=== PATIENT | female | born 1990 | race Caucasian/White ===

== ENCOUNTER → 2018-08-27 14:26 | Outpatient (CLI) | payer MEDICAID, SELFPAY ==
[2018-08-29 18:41] LABS: HPV Reflexed? NOT INDICATED
--- OUTSIDE RECORDS SUMMARY | 2018-11-29 06:52 | XMS RPT_ITS ---
:1990 Author Organization [facility] Care Team Providers Name Role Phone SADA PHILLIP (SLOT FLOOR SUPERVISOR) Attending Unavailable SADA PHILLIP (SLOT FLOOR SUPERVISOR) Referring Unavailable SADA PHILLIP (SLOT FLOOR SUPERVISOR) Referring Unavailable NO, DOCTOR ON Consulting Unavailable NO, DOCTOR ON Referring Unavailable VOLLIRAM DO Primary Care Unavailable VOLLIRAM DO Attending Unavailable VOLIRAM Vazquez DO Admitting Unavailable Suresh Gillis Attending Unavailable Primay Care Physicia, No Primary Care Unavailable PROBLEMS PROBLEMS DATE TYPE CONDITION / CODE ATTENDING STATUS SOURCE 08/27/2018 Unknown Z12.4 - Encounter Suresh Gillis Active [place] for screening for [facility] neoplasm of Repository cervix / Z12.4(ICD-10) 07/16/2018 Active Periumbilic NA Active [facility] swelling, mass or [facility] [place] lump / Repository R19.05(ICD-10) 06/29/2018 Active Generalized NA Active [facility] abdominal pain / [place] R10.84(ICD-10) Repository 06/29/2018 Active Abdominal NA Active [facility] distension [facility] [place] (gaseous) / Repository R14.0(ICD-10) PROCEDURES PROCEDURES No Procedure Records FoundRESULTS RESULTS PAP I-G W/RFX HRHPV Collected: 08/27/2018 Status: F Source: [place] 11:30 AM [facility] REPOSITORY Order Comment: CYTOLOGY INFORMATION: - CLINICAL INFORMATION: - DATE LMP/MENOPAUSE: 08/14/18 LMP - COLLECTION VIAL: Thin Prep Vial - RN ORTHOPAEDICS SOURCE: CERVICAL/ENDOCERVICAL - COLLECTION TECHNIQUE: BRUSH/SPATULA Specimen Comment: [id number] Specimen Comment: Source.............Cervix;Endocervix Specimen Comment: LMP / Prev Treat...CLA=[id number] Specimen Comment: No. of containers..01 ThinPrep Vial TYPE CODE TESTS RESULT OUT OF RANGE REFERENCE UNITS LAB L7400.0800 . Normal DIAGN Comment Result Comment: NEGATIVE FOR INTRAEPITHELIAL LESION AND MALIGNANCY. LAB L7400.0900 . Normal ADEQ Comment Result Comment: Satisfactory for evaluation. Endocervical and/or squamous metaplastic cells (endocervical component) are present. LAB L7400.1400 . Normal PERFORM Comment Result Comment: Melva Kang Transportation Planning Engineer (ASCP) LAB L7400.2575 . Normal TEST METHOD Comment Result Comment: This liquid based ThinPrep(R) pap test was screened with the use of an image guided system. LAB L7400.2600 . Normal . COMM LAB L7400.2700 . Normal PAPSMR Comment Result Comment: The Pap smear is a screening test designed to aid in the detection of premalignant and malignant conditions of the uterine cervix. It is not a diagnostic procedure and should not be used as the sole means of detecting cervical cancer. Both false-positive and false-negative reports do occur. LAB L7400.2800 . Normal HPV RFLX Comment Result Comment: The HPV DNA reflex criteria were not met with this specimen result therefore, no HPV testing was performed. Performed at: [address] [id number] Clinical Support Manager: Hamida Case MD, Phone: [phone] Performed By: #### L7400.0350 #### [facility] (refer to report for specific site) refer to report for address and phone number PROGRESS Observed: 07/16/2018 Status: COMPLETED Source: [place] 12:13 PM [facility] [place] REPOSITORY O ID: [id number] Author: Maday Guillen Service: (none) Author Type: Garage Supervisor Type: Progress Notes Filed: 07/16/2018 12:14 PM Note Text: Radiology Service Progress Note PATIENT NAME: Elizabeth Wilkins DATE OF SERVICE: July 16, 2018 TIME: 12:13 PM PATIENT IDENTITY VERIFICATION COMPLETED USING TWO (2) METHODS: Patient confirmed name verbally and Date of . PATIENT GENDER DATA: Female. status: : No status: N/A PATIENT RELEVANT IMPLANT DATA REVIEWED: Not Applicable RADIOLOGY DEPARTMENT: Ultrasound PERIPHERAL IV DATA: Not applicable SIGNED BY: MADAY GUILLEN RDMS RVT July 16, 2018 12:13 PM US ABDOMEN COMPLETE Observed: 07/16/2018 Status: F Source: [place] 12:12 PM [facility] [place] REPOSITORY * * *Final Report* * * DATE OF EXAM: Jul 16 2018 12:12PM U 1040 - US ABDOMEN COMPLETE / PROCEDURE REASON: multiple diagnoses * * * * Physician Interpretation * * * * ULTRASOUND ABDOMEN COMPLETE: HISTORY: 27 years old Clinical information: Periumbilical mass Generalized abdominal pain TECHNIQUE: Multiple images were obtained in the sagittal axial plane.Images stored and permanent archive. Comparison: None RESULT: Findings: Liver: No focal masses.. Echotexture normal . Biliary tree: Common duct normal size. No intrahepatic bile duct dilatation . Pancreas: No focal masses.. Gallbladder: Unremarkable Spleen: Unremarkable . Limited evaluation due to overlying bowel gas. Aorta: Normal in size . Inferior vena cava: Unremarkable Kidneys: No focal masses. No hydronephrosis. . Area of pain in where patient felt a palpable area superior to the umbilicus also scanned. No abnormality was seen in this area Impression: Negative exam Cinema Or Theatre Manager: YFN Transcribe Date/Time: Jul 17 2018 12:12P Dictated by : THAO GUZMAN DO This examination was interpreted and the report reviewed and electronically signed by: THAO GUZMAN DO on Jul 17 2018 12:13PM EST [id number] CBC AND DIFFERENTIAL Collected: 06/29/2018 Status: F Source: [place] 1:23 PM [facility] REPOSITORY TYPE CODE TESTS RESULT OUT OF REFERENCE UNITS RANGE LAB WBC 3.70-11.00 k/uL WBC 6.70 LAB RBC 3.90-5.20 m/uL RBC 4.19 LAB HGB 11.5-15.5 g/dL Hemoglobin 13.3 LAB HCT 36.0-46.0 % Hematocrit 42.6 LAB MCV 80.0-100.0 fL MCV High 101.7 LAB MCH 26.0-34.0 pG MCH 31.7 LAB MCHC 30.5-36.0 g/dL MCHC 31.2 LAB RDWCV 11.5-15.0 % RDW-CV 12.3 LAB PLTCT 150-400 k/uL Platelet Count 244 LAB MPV 9.0-12.7 fL MPV 10.6 LAB ANEUT % Neut% 49.5 LAB AANEUT 1.45-7.50 k/uL Abs Neut 3.30 LAB ALYMP % Lymph% 40.4 LAB AALYMP 1.00-4.00 k/uL Abs Lymph 2.71 LAB AMONO % [place]% 6.7 LAB AAMONO <0.87 k/uL Abs [place] 0.45 LAB AEOS % Eosin% 2.2 LAB AAEOS <0.46 k/uL Abs Eosin 0.15 LAB ABASO % Baso% 1.2 LAB AABASO <0.11 k/uL Abs Baso 0.08 LAB AUNRBC 0 /100 WBC NRBCs 0.0 LAB ABNRBC <0.01 k/uL Absolute nRBC <0.01 LAB DTYP DTYPE Auto Diff Performed By: #### CBCDIF, CMP, HPYLRI #### [facility] [address] [place] [address] COMP METABOLIC PANEL Collected: 06/29/2018 Status: F Source: [place] 1:23 PM [facility] [place] REPOSITORY TYPE CODE TESTS RESULT OUT OF REFERENCE UNITS RANGE LAB TP 6.3-8.0 g/dL Protein, Total 7.0 LAB ALB 3.9-4.9 g/dL Albumin 4.6 LAB CA 8.5-10.2 mg/dL Calcium, Total 9.7 LAB TBIL 0.2-1.3 mg/dL Bilirubin, Total 0.4 LAB ALKP 34-123 U/L Alkaline Phosphatase 46 LAB AST 13-35 U/L AST 19 LAB GLU 74-99 mg/dL Glucose 82 Result Comment: The [place] Diabetes Association (ADA) provides guidance for cutoff values for fasting glucose and random glucose. The ADA defines fasting as no caloric intake for at least 8 hours. Fas ting plasma glucose results between 100 to 125 mg/dL indicate increased risk for diabetes (prediabetes). Fasting plasma glucose results greater than or equal to 126 mg/dL meet the criteria for diagnosis of diabetes. In the absence of unequivocal hyperglycemia, results should be confirmed by repeat testing. In a patient with classic symptoms of hyperglycemia or hyperglycemic crisis, random plasma glucose results greater than or equal to 200 mg/dL meet the criteria for diagnosis of diabetes. Reference: Standards of Medical Care in Diabetes 2016, [place] Diabetes Association. Diabetes Care. 2016.39(Suppl 1). LAB BUN 7-21 mg/dL BUN 11 LAB CRET 0.58-0.96 mg/dL Creatinine High 0.97 LAB NA 136-144 mmol/L Sodium 140 LAB K 3.7-5.1 mmol/L Potassium 4.3 LAB CL 97-105 mmol/L Chloride 102 LAB CO2 22-30 mmol/L CO2 25 LAB AGAP 9-18 mmol/L Anion Gap 13 LAB ALT 7-38 U/L ALT 11 LAB GFRAA eGFR- Amer. >60 LAB GFRNAA . eGFR-All Other Races >60 Result Comment: eGFR (Estimated GFR) Units of measure: mL/min/1.73 meters squared eGFR is derived from the reexpressed MDRD Study equation using the following parameters: serum creatinine, age, gender and race. The creatinine assay has been calibrated to be traceable to IDMS. An eGFR <60 mL/min/1.73m2 for >3 months is consistent with chronic kidney disease. Refer to KDOQI guidelines for clinical interpretation. In patients with unstable renal function, e.g. those with acute kidney injury, the eGFR may not accurately reflect actual GFR. Performed By: #### CBCDIF, CMP, HPYLRI #### [facility] [address] [place] [id number] HELICO PYLORI AB Collected: 06/29/2018 Status: F Source: [place] 1:23 PM [facility] REPOSITORY TYPE CODE TESTS RESULT OUT OF REFERENCE UNITS RANGE LAB HPYLRL Negative H. pylori Negative IgG, Qual Result Comment: H. pylori IgG antibodies were not detected in the sample. Negative results by this test do not preclude recent primary infection. LAB HPYLR U/mL H pylori Ab, IgG <0.4 Result Comment: U/mL are interpreted as follows: Negative specimens <0.9 Indeterminate specimens >=0.9 to <1.1 Positive specimens >=1.1 Results were obtained with the IMMULITE 2000 H.pylori IgG EIA. Results obtained from other manufacturers' assay methods may not be used interchangeably. Performed By: #### CBCDIF, CMP, HPYLRI #### [facility] [address] [place], [place] [address] PROGRESS Observed: 06/29/2018 Status: COMPLETED Source: [place] 12:49 PM [facility] REPOSITORY HNO ID: [id number] Author: Sada (Dena) Jack Service: (none) Author Type: Nurse Practitioner Type: Progress Notes Filed: 06/29/2018 1:16 PM Note Text: 06/29/2018 Patient presents with: Mass SUBJECTIVE: This is a 27 year old that is here today for abdominal cramping, bloating, and umbilical mass that she noticed 2 months ago and has become painful with exertion with things like intercourse. She does not have any increased pain with BMs. She states that she has 2 BMS a week that are soft and formed, but she feels that she should be having more. She had been on fiber in the past, but has not been taking it. She admits to not drinking much water and not eating vegetables. She states that she looked up a special diet for her blood type that told her to avoid meats, but that has not helped. She denies decreased appetites, NVD, blood in stools, Urinary concerns. PAST MEDICAL HISTORY Diagnosis Date - NEGATIVE MEDICAL HISTORY ALLERGIES Patient has no known allergies. MEDICATIONS Current Outpatient Prescriptions: Norgestimate-Ethinyl Estradiol (TRI-SPRINTEC) 0.18/0.215/0.25 mg-35 mcg (28) tab Take by mouth. VIT CALC,IRON,FOLIC ( #2 ORAL) Take by mouth. acetaminophen (TYLENOL) 325 mg tablet Take 650 mg by mouth every 6 hours as needed for Pain. No current facility-administered medications for this visit. Medications and allergies reviewed by this provider. SOCIAL HISTORY Social History Marital status: Single Spouse name: Years of education: Number of children: Social History Main Topics Smoking status: Current Every Day Smoker Packs/day: 0.40 Years: 0.00 Smokeless tobacco: Never Used Alcohol use: Yes Comment: rare Drug use: Yes Comment: marijuana 2x per yaneli REVIEW OF SYSTEMS see HPI OBJECTIVE: BP 106/70 Pulse 99 Resp 12 Wt 52.2 kg (115 lb) SpO2 99% . Vital signs reviewed by this provider. PHYSICAL EXAMINATION: General appearance: Well appearing, alert, in no acute distress, well-hydrated, well nourished. Skin: Skin color, texture, turgor normal, no suspicious rashes or lesions, acne Lungs: Lungs clear to auscultation. No wheezing, rhonchi, rales Heart: RRR without murmur, gallop, or rubs. No ectopy Abdomen: Abdomen soft, non-tender. Bowel sounds normal. No masses, organomegaly, slightly harder spot with palpation directly to the umbilicus- does not feel like a well defined mass, unclear if it may be umbilicus itself. Extremities: No deformities, edema, skin discoloration, clubbing or cyanosis. Good capillary refill. , Pulses: 2+ ASSESSMENT/PLAN: 1. Periumbilical mass - ICD9: 789.35, ICD10: R19.05 (primary diagnosis) - unclear etiology. Will order US to evaluate further. - instructed to increase fiber in diet and fluids - ok to add miralax - US ABDOMEN COMPLETE 2. Generalized abdominal pain - ICD9: 789.07, ICD10: R10.84 Differential Diagnosis includes Constipation - Increase fiber in diet - Treatment for constipation discussed - US ABDOMEN COMPLETE - COMP METABOLIC PANEL - CBC + DIFF - H PYLORI IGG AB 3. Bloating - ICD9: 787.3, ICD10: R14.0 - see above - H PYLORI IGG AB Needs to see PCP for physical, has not been seen since 2014 Sada Phillip APRN.DENA CNOV Observed: 06/29/2018 Status: COMPLETED Source: [place] 12:40 PM [facility] REPOSITORY Office Visit (FAMPWS) ELIZABETH WILKINS ([id number]) 1990 F Date Time Provider Department 06/29/18 12:40 PM SADA PHILLIP (DENA) FAMPWS During your visit today, we recorded the following information about you: Pulse Respiration Blood pressure Weight 99/minute 12/minute 106/70 52.2 kg Sada PetitMABEL ibarra.SLOT FLOOR SUPERVISOR 06/29/2018 1:16 PM Signed 06/29/2018 Patient presents with: Mass SUBJECTIVE: This is a 27 year old that is here today for abdominal cramping, bloating, and umbilical mass that she noticed 2 months ago and has become painful with exertion with things like intercourse. She does not have any increased pain with BMs. She states that she has 2 BMS a week that are soft and formed, but she feels that she should be having more. She had been on fiber in the past, but has not been taking it. She admits to not drinking much water and not eating vegetables. She states that she looked up a special diet for her blood type that told her to avoid meats, but that has not helped. She denies decreased appetites, NVD, blood in stools, Urinary concerns. PAST MEDICAL HISTORY Diagnosis Date - NEGATIVE MEDICAL HISTORY ALLERGIES Patient has no known allergies. MEDICATIONS Current Outpatient Prescriptions: Norgestimate-Ethinyl Estradiol (TRI-SPRINTEC) 0.18/0.215/0.25 mg-35 mcg (28) tab Take by mouth. VIT CALC,IRON,FOLIC ( #2 ORAL) Take by mouth. acetaminophen (TYLENOL) 325 mg tablet Take 650 mg by mouth every 6 hours as needed for Pain. No current facility-administered medications for this visit. Medications and allergies reviewed by this provider. SOCIAL HISTORY Social History Marital status: Single Spouse name: Years of education: Number of children: Social History Main Topics Smoking status: Current Every Day Smoker Packs/day: 0.40 Years: 0.00 Smokeless tobacco: Never Used Alcohol use: Yes Comment: rare Drug use: Yes Comment: marijuana 2x per yaneli REVIEW OF SYSTEMS see HPI OBJECTIVE: BP 106/70 Pulse 99 Resp 12 Wt 52.2 kg (115 lb) SpO2 99% . Vital signs reviewed by this provider. PHYSICAL EXAMINATION: General appearance: Well appearing, alert, in no acute distress, well-hydrated, well nourished. Skin: Skin color, texture, turgor normal, no suspicious rashes or lesions, acne Lungs: Lungs clear to auscultation. No wheezing, rhonchi, rales Heart: RRR without murmur, gallop, or rubs. No ectopy Abdomen: Abdomen soft, non-tender. Bowel sounds normal. No masses, organomegaly, slightly harder spot with palpation directly to the umbilicus- does not feel like a well defined mass, unclear if it may be umbilicus itself. Extremities: No deformities, edema, skin discoloration, clubbing or cyanosis. Good capillary refill. , Pulses: 2+ ASSESSMENT/PLAN: 1. Periumbilical mass - ICD9: 789.35, ICD10: R19.05 (primary diagnosis) - unclear etiology. Will order US to evaluate further. - instructed to increase fiber in diet and fluids - ok to add miralax - US ABDOMEN COMPLETE 2. Generalized abdominal pain - ICD9: 789.07, ICD10: R10.84 Differential Diagnosis includes Constipation - Increase fiber in diet - Treatment for constipation discussed - US ABDOMEN COMPLETE - COMP METABOLIC PANEL - CBC + DIFF - H PYLORI IGG AB 3. Bloating - ICD9: 787.3, ICD10: R14.0 - see above - H PYLORI IGG AB Needs to see PCP for physical, has not been seen since 2014 Sada Phillip APRN.SLOT FLOOR SUPERVISOR Referring Provider: SELF [200] Allergies As of Date: 06/29/2018 (No Known Allergies) Date Reviewed: 06/29/2018 Reviewed by: Rochelle (Donell) DONELL Sosa - Fully Assessed Reason for Visit: Mass [64] Primary Visit Diagnosis:Periumbilical mass [R19.05] Other Visit Diagnoses:Generalized abdominal pain [R10.84] Bloating [R14.0] Order(s):Norgestimate-Ethinyl Estradiol (TRI-SPRINTEC) 0.18/0.215/0.25 mg-35 mcg (28) tabTake 1 tablet by mouth once daily.Disp: Rfl: 0 US ABDOMEN COMPLETE [7619910] Order #: [id number] FUTURE COMP METABOLIC PANEL [SQCMP] Order #: [id number] FUTURE CBC + DIFF [SQCBCDIF] Order #: [id number] FUTURE H PYLORI IGG AB [SQHPYLRI] Order #: [id number] FUTURE Prescriptions as of 06/29/2018 Sig: NORGESTIMATE-ETHINYL ESTRADIO* Take 1 tablet by mouth once d* Problem List As Of Date 06/29/2018 Noted Resolved Smoker [F17.200] INVALID FOR* Priority: C More... Pneumonia [J18.9] INVALID FOR* Prescriptions ordered this encounter Disp Refills Start End NORGESTIMATE-ETHINYL ESTRADIOL 0.18 * 0 06/29/2018 Class: Med Update Route: ORAL Sig: Take 1 tablet by mouth once daily. Medications Discontinued During This Encounter acetaminophen (TYLENOL) 325 mg tablet 06/29/2018 Class: Historical Med Route: ORAL Sig: Take 650 mg by mouth every 6 hours as needed for Pain. Disc: Reason for discontinue is not on file. VIT CALC,IRON,FOLIC (PRENAT* 06/29/2018 Class: Historical Med Route: ORAL Sig: Take by mouth. Disc: Reason for discontinue is not on file. Norgestimate-Ethinyl Estradiol (TRI-* 0 07/23/2015 06/29/2018 Class: Historical Med Route: ORAL Sig: Take by mouth. Disc: Reason for discontinue is not on file. Encounter Status:Closed by SADA PHILLIP on 06/29/18 EMERGENCY DEPARTMENT Observed: 10/10/2017 Status: F Source: [facility] SUMMARY 9:04 AM [facility] EMERGENCY DEPARTMENT SUMMARY NAME NUMBER SEX AGE ADMIT DISC TYPE MED.RECORD# FRANKY Giordano [id number] F 26 09/27/17 09/27/17 Roman [id number] ROOM:[facility] DATE OF :1990 PHYSICIAN NO.:[id number] PHYSICIAN NAME:IRAM CARUSO DO PHYSICIAN:NO DOCTOR ON ADMISSION SHEET HISTORY OF PRESENT ILLNESS: The patient is a 26-year-old female who presents for contusion of the left foot. The patient states one day prior she was chasing after her son and she kicked a coffee table. The patient states she has been able to ambulate, however, states that her distal third, fourth and fifth toes on the left have been very painful. The patient states that she is not taking anything for it and came to the ED. PAST MEDICAL HISTORY: None. PAST SURGICAL HISTORY: Tonsils and adenoids removed. ALLERGIES: No known drug allergies. SOCIAL HISTORY: She smokes daily. She drinks occasionally. She denies any drug use. REVIEW OF SYSTEMS: Positive for left foot pain. The remainder of the review of systems is unremarkable. PHYSICAL EXAMINATION: VITAL SIGNS: Temperature 97.9, pulse 80, respirations 14, blood pressure 129/75, O2 saturation 98% on room air. CONSTITUTIONAL: No acute distress. Alert and oriented. Nontoxic appearing. She is playing on her phone on evaluation. CARDIAC: Regular rate and rhythm. Negative for murmurs, rubs or gallops. Positive S1, S2. PULMONARY: Clear to auscultation bilaterally. Negative for wheezes, rales or crackles. ABDOMEN: Soft, nontender and nondistended. Normal bowel sounds in all 4 quadrants. Negative for Christine's or McBurney's. MSK: Normal radial and DP pulses bilaterally. Full range of motion of bilateral knees and hips. She has mild ecchymotic lesion noted on the patient's dorsal third toe. Normal capillary refill. Full range of motion of the ankle and flexion and extension. Negative for midfoot pain or lateral foot pain to palpation. DIAGNOSTIC DATA: X-ray of the left foot shows no acute disease. EMERGENCY DEPARTMENT COURSE AND TREATMENT: At this time, the patient has a contusion of the left third toe. The patient does have some pain with ambulating and thus was given a postop walking shoe. At this time, the patient's vital signs are normal and stable. She is nontoxic appearing and looks well. We have elected to discharge the patient home. The patient has been given a prescription for Naproxen to take for the pain. She has been given indications for when to return to the emergency room. At this time, the patient has been discharged home. DIAGNOSIS: Left third toe contusion. D: Iram Caruso DO TD: 10:58 JOB #: [id number] Electronically signed by: IRAM CARUSO DO 10/10/17 09:04 Transcribed by: constantino 10/01/2017 14:59 ALLERGIES ALLERGIES DATE TYPE / CODE NAME / CODE REACTION SEVERITY SOURCE 09/26/2017 Drug No Known Unknown [place] Allergy/282110054(S [facility] [address] Repository Drug NO KNOWN [place] Class/581341337(SNO ALLERGIES [facility] [place] Repository Miscellaneous No Known Drug Moderate [place]an [place] Allergy/172711729(S Allergies ([facility] NOM[facility]) Modifier) Hospital (Qualifier Repository Value) ENCOUNTERS ENCOUNTERS ADMIT/DISCHARGE ACCOUNT ADMITTING ENCOUNTER LOCATION SOURCE NUMBER CLASS 08/27/2018 [id number] [facility] ing:[facility] Repository 07/16/2018/07/16/20 [id number] Ambulatory [address] Repository 06/29/2018/06/29/20 [id number] Ambulatory [address] Repository 06/29/2018/07/03/20 [id number] Ambulatory [address] Repository 09/27/2017/09/27/19 [id number] IRAM CARUSO Emergency BuildinR Adan Zavala 18 DO oom: ERBed: C [facility] Repository PAYERS PAYERS ENCOUNTER GUARANTOR PAYER SUBSCRIBER SOURCE 08/27/2018 ELIZABETH SINGH Primary ELIZABETH Camaraoster [id number] Insurance:BRIGETTE MARINELLIB: [id number]: Repository de [address]Pcj: [id number] Date:[id number] BOX () [address] [place] [address]4669XU: 08/27/2018 [facility]LF [facility] Number: Effective Repository Date:2018-08-27 09/27/2017 ELIZABETH Giordano Primary ELIZABETH MARINELLIB: Insurance:BRIGETTE LOZOYA: [facility] [id number] [facility] [id number] Hospital BOX OUTPATIENTPolicy BOX Repository [address] [place] [address], Number: [address] [place] [address] [id number]: Date:Plan Name:X2 ()
== END ==
PROVIDERS: Visit Provider Obstetrics & Gynecology
DX: Z12.4 Encounter for screening for malignant neoplasm of cervix (principal)
CPT/HCPCS: 88175; G0145

== ENCOUNTER → 2020-09-16 13:10 | Outpatient (CLI) | payer MEDICAID, SELFPAY ==
[2017-09-26 19:03] VITALS: BMI 22.9
[2020-09-23 14:46] LABS: HPV Reflexed? NOT INDICATED
== END ==
PROVIDERS: Visit Provider Obstetrics & Gynecology
DX: Z12.4 Encounter for screening for malignant neoplasm of cervix (principal)
CPT/HCPCS: 88175; G0145

== ENCOUNTER 2020-11-20 15:43 | Emergency (ER) | payer MEDICAID, SELFPAY ==
[2020-11-20 15:44] VITALS: BP 139/72; PULSE 104; RESP 18; TEMP 36.9; O2SAT 98; BMI 25.0
--- NOTE | 2020-11-20 16:10 | EKG12_ITS ---
Test Reason : Blood Pressure : / mmHG Vent. Rate : 091 BPM Atrial Rate : 091 BPM P-R Int : 142 ms QRS Dur : 072 ms QT Int : 360 ms P-R-T Axes : 078 064 051 degrees QTc Int : 442 ms Normal sinus rhythm Normal ECG Confirmed by DEACON SINHA, CHIDI ([id number]), book or script editor LISA BANSAL ([id number]) on 11/23/2020 10:58:10 A M Referred By: NIKI Confirmed By:EDOUARD WORTHY MD
--- NOTE | 2020-11-20 16:13 | ED.DCSUM_ITS ---
History of Present Illness Chief Complaint: General Illness Informant: Patient Onset: Days Context: Gradual Onset Timing: Continuous Narrative: Patient is a 30-year-old female presenting with persistent upper respiratory symptoms and generalized malaise. Patient developed sore throat and runny nose 8 days ago. She had an associated cough that is now having blood-tinged sputum. She states the back of her throat feels raw. States she cannot sleep because of her nasal congestion and cough. She was seen at [facility] 3 days ago diagnosed with sinusitis. She is put on Flonase and cough medicine. She states not helping. She started having vomiting days ago. The vomiting resolved yesterday. She states she had a total of 3 - Covid test the most recent one was 2 days ago. Patient notes she works at [employer] however there is not been any Covid cases with any residents or staff. She has had fevers up to 101. She denies he says he abdominal pain. She notes he gets a sharp pain in her chest that radiates to her back whenever she coughs or takes a deep breath. She denies any diffuse rash but does have a small area of redness on her left wrist. This happened today after she took a shower. Does not itch and has no drainage. She denies any urinary symptoms. Her only daily medication is contraceptives.Does have history of strep throat but states he had tonsillectomy because of this. Thinks he might of had mono in the past. Denies any sick contacts. No other complaints at this time. Past Medical History - Allergies and Home Meds Allergies/Adverse Reactions: Allergies No Known Allergies Allergy (Verified 11/20/20 15:47) Primary Care Physician: Care Physician,No Primary [NON-STAFF] - Past Medical History: None Surgical History: tonsillectomy Lives: With Family Smoking Status: Former smoker Review of Systems General: Reports: Chills, Fever, Malaise. Denies: Sweats Eyes: Denies: Visual changes - bilaterally, Diplopia ENT: Reports: Rhinorrhea, Sore throat, - - Nasal congestion. Denies: Bilateral ear pain Cardiovascular: Reports: Chest pain. Denies: Palpitations Respiratory: Reports: Cough, Sputum. Denies: Dyspnea, Dyspnea on exertion Gastrointestinal: Reports: Vomiting - Resolved. Denies: Abdominal pain, Nausea, Diarrhea, Constipation, Melena, Hematochezia Genitourinary: Denies: Dysuria, Hematuria, Frequency Musculoskeletal: Reports: Myalgias. Denies: Back pain, Extremity Pain Skin: Denies: Rash, Wounds Neurological: Denies: Headache, Weakness, Numbness Physical Exam Vital Signs/Narrative: Vital Signs Temp Pulse Resp BP Pulse Ox 11/20/20 15:44 98.5 F 104 H 18 139/72 H 98 Inital Vital Signs reviewed: Yes General: Well nourished, Well developed, No Acute Distress Head: Normocephalic, Atraumatic Eyes: Perrl, EOMI ENT: Moist mucous membranes, No rhinorrhea, TM's clear, Nasal congestion, - - Scattered erythema in the soft palate noted. Tonsils surgically absent. Neck: Supple, Nontender, No JVD, - - Lymphadenopathy noted anterior cervical chain bilaterally Cardiovascular: Regular rate, Regular rhythm, No murmurs Respiratory: No distress, CTA bilaterally, Chest nontender. Negative for: Rhonchi, Wheezing, Diminished Abdomen: Soft, Nontender, Nondistended, Normal bowel sounds Back: Nontender, Normal Inspection Extremities: Nontender, No edema Skin: Normal color, No rash Neurological: Alert, Oriented x3, Cranial nerves II-XII grossly intact, Normal Strength, Normal Sensation Psychological: Normal affect, Normal Mood Diagnostic/Tx/Re-eval Chest X-Ray - ED: 1 View, Read by ED Physician, Read by Radiologist, No Acute Disease Clinical Impression(s) from Imaging Studies Chest X-Ray 11/20/20 17:03 IMPRESSION: Normal x-ray examination of the chest. Electronically Signed: Tana Norman MD at 17:33 EST Tel , Service support , Laboratory Data 11/20/20 11/20/20 11/20/20 16:50 16:50 16:50 WBC 7.5 RBC 4.50 Hgb 13.9 Hct 42.6 MCV 94.7 MCH 30.9 MCHC 32.6 RDW Std Deviation 43.0 RDW Coeff of Marichuy 12.3 Plt Count 218 MPV 9.4 Immature Gran % (Auto) 0.300 Neut % (Auto) 61.3 Lymph % (Auto) 23.9 Banner % (Auto) 12.8 H Eos % (Auto) 1.2 Baso % (Auto) 0.5 Absolute Neuts (auto) 4.6 Absolute Lymphs (auto) 1.79 Nucleated RBC % 0 Sodium 138 Potassium 3.7 Chloride 103 Carbon Dioxide 29.0 Anion Gap 6 BUN 9 Creatinine 0.77 Estim Creat Clear Calc 82.08 Est GFR (MDRD) Af Amer 115 Est GFR (MDRD) Non-Af 95 BUN/Creatinine Ratio 11.7 Glucose 89 Calcium 9.2 Total Bilirubin 0.30 AST 12 L ALT 18 Alkaline Phosphatase 71 Total Creatine Kinase Troponin I < 0.015 Total Protein 7.7 Albumin 4.0 Globulin 3.7 Albumin/Globulin Ratio 1.1 Lipase 94 Urine Color Urine Clarity Urine pH Ur Specific Marion Urine Protein Urine Glucose (UA) Urine Ketones Urine Occult Blood Urine Nitrite Urine Bilirubin Urine Urobilinogen Ur Leukocyte Esterase Urine RBC Urine WBC Ur Squamous Epith Cells Urine Bacteria Urine Mucus Urine Test Monoscreen Negative 11/20/20 11/20/20 16:50 16:55 WBC RBC Hgb Hct MCV MCH MCHC RDW Std Deviation RDW Coeff of Marichuy Plt Count MPV Immature Gran % (Auto) Neut % (Auto) Lymph % (Auto) Banner % (Auto) Eos % (Auto) Baso % (Auto) Absolute Neuts (auto) Absolute Lymphs (auto) Nucleated RBC % Sodium Potassium Chloride Carbon Dioxide Anion Gap BUN Creatinine Estim Creat Clear Calc Est GFR (MDRD) Af Amer Est GFR (MDRD) Non-Af BUN/Creatinine Ratio Glucose Calcium Total Bilirubin AST ALT Alkaline Phosphatase Total Creatine Kinase 80 Troponin I Total Protein Albumin Globulin Albumin/Globulin Ratio Lipase Urine Color Yellow Urine Clarity Clear Urine pH 6.0 Ur Specific Marion 1.015 Urine Protein 30 H Urine Glucose (UA) Normal Urine Ketones Negative Urine Occult Blood Negative Urine Nitrite Negative Urine Bilirubin Negative Urine Urobilinogen 1 H Ur Leukocyte Esterase Negative Urine RBC 0-5 SEEN Urine WBC 0 SEEN Ur Squamous Epith Cells 0-5 SEEN Urine Bacteria 0 SEEN Urine Mucus 0 SEEN Urine Test Negative Monoscreen - Rhythm Strip Rhythm Strip: Sinus Rhythm Rate: 91 Ectopy: None - EKG Initial EKG Interpretation: Sinus Rhythm, - - Sinus rhythm at a rate of 91 Normal axis Normal intervals Normal ST segments - Medical Decision Making Patient is evaluated for continued upper respiratory symptoms as well as cough. Her presentation is consistent with a bronchitis or other viral syndrome. Given patient has had 3 prior negative Covid test is still concern for it I will obtain a PCR. This is negative. Chest x-rays not show any acute process. Patient not have any laboratory abnormalities. I believe that this is bronchitis. Patient be treated symptomatically with Tessalon Perles and albuterol inhaler. She does not have wheezing but she could have cough variant. Patient is counseled that the typical course of this can last for up to 3 weeks and has considered normal. Patient is counseled on signs and symptoms requiring return to the emergency room. Patient verbalizes agreement and understand this plan. Patient discharged home in stable and improved condition. ED Disposition - Plan for ED Patient: Disposition: Home or Assisted Living Diagnosis: Bronchitis Instructions: Pending Outpatient COVID Test, ED Bronchitis, No Antibiotic (Adult) Prescriptions: Benzonatate [Tessalon Perle] 200 mg PO TID PRN PRN #20 cap PRN Reason: Cough Transmission Status: Received by [id number] Albuterol Inhaler [Ventolin Hfa] 1 - 2 puff INHALATION Q4H PRN PRN #1 inhaler PRN Reason: Wheezing Transmission Status: Received by [id number] Referrals: Care Physician,No Primary [NON-STAFF] -
[2020-11-20] MEDS: 0.9% Normal Saline 1,000 ML 1000 ML IV (16:51)
[2020-11-20] MEDS: Ketorolac 15 MG/ML Vial IV (16:52)
--- NOTE | 2020-11-20 17:03 | RAD_ITS ---
STUDY: X-RAY CHEST REASON FOR EXAM: Female, 30 years old. cough TECHNIQUE: Frontal view of the chest COMPARISON: None. FINDINGS: The lungs are clear and expanded. There is no demonstrated pleural abnormality. Normal size heart. Normal mediastinum and dayna. Normal visualized pulmonary arteries. Normal visualized aortic arch and descending thoracic aorta. Normal visualized thoracic spine. Normal visualized ribs, clavicles, and shoulders. There is no demonstrated abnormality of the visualized soft tissue structures of the upper abdomen. RAD/Chest 1 View (Portable) IMPRESSION: Normal x-ray examination of the chest. Electronically Signed: Tana Norman MD at 17:33 EST Tel , Service support ,
[2020-11-20 17:05] LABS: Bacteria 0 SEEN /hpf (None Seen); Mucous, Urine 0 SEEN /hpf (<or=2+); White Blood Cells 0 SEEN /hpf (0-5)
[2020-11-20 17:10] LABS: Absolute Lymphocyte Count 1.79 X10^3/uL (0.83-4.51); Absolute Neutrophil Count 4.6 X10^3/uL (2.0-7.7); Basophil# 0.04 X10^3/uL; Basophil% 0.5 % (0-1); Eosinophil# 0.09 X10^3/uL; Eosinophils% 1.2 % (0-5); Hematocrit 42.6 % (37-47); Hemoglobin 13.9 g/dL (12.0-15.0); Lymphocyte # 1.79 X10^3/ul (4.0); Lymphocyte % 23.9 % (19-41); Mean Corp Hgb Conc 32.6 g/dL (32-36); Mean Corpuscular Hgb 30.9 pg (27.0-32.0); Mean Corpuscular Volume 94.7 fL (81-99); Mean Platelet Vol. 9.4 fl (6.2-12.0); Monocyte# 0.96 X10^3/uL; Monocyte% 12.8 % (0-10); NRBC Flagged by Analyzer 0 % (0-5); Neutrophil # 4.59 X10^3/uL (2.7-7.7); Neutrophil % 61.3 % (47-70); Platelet Count 218 K/mm3 (150-450); RBC Distribution Width CV 12.3 % (11.6-14.6); White Blood Count 7.5 K/mm3 (4.4-11.0)
[2020-11-20 17:11] LABS: Color, Urine Yellow (Yellow); Glucose, Dipstick Normal (Normal); Ketone-Dipstick Negative (Negative); Leukocyte Esterase-Dipstick Negative /ul (Negative); Nitrite-Dipstick Negative (Negative); Occult Blood-Urine Negative /ul (Negative); Protein-Dipstick 30 mg/dl (Negative); Specific Gravity, Urine 1.015 (1.002-1.030); Urine Bilirubin Dipstick Negative (Negative); Urine Clarity Clear (Clear); Urine Urobilinogen 1 mg/dl (Normal)
[2020-11-20 17:23] LABS: Internal QC Validated? YES +Cl - CLEAR BKGD; Pregnancy, Urine Negative Negative
[2020-11-20 17:24] LABS: Red Blood Cells-Urine 0-5 SEEN /hpf (0-5); Squamous Epithelial Cells - UA 0-5 SEEN /hpf (5-10)
[2020-11-20 17:34] LABS: CPK Total, Creatine Kinase 80 U/L (26-192)
[2020-11-20 17:40] LABS: Internal QC Validated? YES +Cl - CLEAR BKGD; Monotest Negative (Negative)
[2020-11-20 17:45] LABS: ALB/GLOB Ratio 1.1 RATIO (0.9-2.4); AST(SGOT) 12 U/L (15-37); Alanine Aminotransfer ALT/SGPT 18 U/L (13-56); Alkaline Phosphatase 71 U/L (45-117); Anion Gap 6 (5-15); BUN 9 mg/dL (7-18); BUN/Creat Ratio 11.7 RATIO (10-20); Calcium,Total 9.2 mg/dL (8.5-10.1); Chloride 103 mmol/L (98-107); Creatinine, Serum 0.77 mg/dL (0.55-1.02); EST Glomerular Filtration Rate 95 mL/min (>60); Est Glom Filt Rate - Afr Amer 115 mL/min (>60); Estimated Creatinine Clearance 82.08 ml/min; Globulin 3.7 g/dL (2.2-4.2); Glucose 89 mg/dL (74-106); Lipase 94 U/L (73-393); Potassium 3.7 mmol/L (3.5-5.1); Protein, Total 7.7 g/dL (6.4-8.2); Sodium Level 138 mmol/L (136-145)
[2020-11-20 18:58] VITALS: BP 134/77; PULSE 98; RESP 17; O2SAT 98
== END 2020-11-20 19:02 | disposition home or self-care (01) ==
PROVIDERS: Emergency Provider Emergency Medicine; PCP Family Medicine
DX: J40 Bronchitis, not specified as acute or chronic (principal); Z87.891 Personal history of nicotine dependence
CPT/HCPCS: 71045; 80053; 81001; 81025; 82550; 83690; 84484; 85025; 86308; 87635; 93005; 96361; 96374; 99284; J7030; A4216; U0002

== ENCOUNTER 2021-04-07 17:02 | Emergency (ER) | payer MEDICAID, SELFPAY ==
[2021-04-07 17:03] VITALS: BP 125/70; PULSE 74; RESP 15; TEMP 36.9; O2SAT 100; BMI 25.4
--- NOTE | 2021-04-07 17:20 | RAD_ITS ---
STUDY: X-RAY - RIGHT HAND REASON FOR EXAM: Female, 30 years old. INJURY TECHNIQUE: 3 view(s) of the hand. COMPARISON: None. FINDINGS: Normal radiocarpal articulation. Normal distal radioulnar joint. Normal visualized carpal bones. Normal carpal articulations Normal carpometacarpal articulation of the thumb. Normal second through fifth carpometacarpal joints. Normal metacarpi. No visualized fracture. Normal metacarpophalangeal joint of the thumb. Normal interphalangeal joint of the thumb. Normal proximal and distal phalanges of the thumb. Normal metacarpophalangeal joints of the second through fifth fingers. Normal proximal and distal interphalangeal joints of the second through fifth fingers. Normal phalanges of the second through fifth fingers. The soft tissue structures are unremarkable. RAD/Hand Min 3 Views IMPRESSION: Normal x-ray examination of the hand. Electronically Signed: Vikash Gonzalez MD at 18:33 EDT , Service support ,
--- NOTE | 2021-04-07 18:51 | EX.ED.UPPERE ---
HPI History of Present Illness Chief Complaint: Upper Extremity Injury Informant: patient Narrative Narrative: Patient states that 2 evenings ago she fell going up the stairs and landed with a closed fist against the steps. She notes swelling and bruising and pain over the dorsum of the right hand particularly around the fourth MCP joint. She denies any other injuries. No breaks in the skin. PFSH PFSH Medical History Non-smoker no medical history Home Medications norgestimate-ethinyl estradiol 1 tab PO DAILY 11/20/20 [History Last Taken Unknown] Allergy/AdvReac Type Severity Reaction Status Date / Time No Known Allergies Allergy Verified 04/07/21 17:05 Surgical History History of tonsillectomy and adenoidectomy Social History (Updated 04/07/21 @ 18:[address] Scar Nava DO) Smoking Status: Never smoker substance use type: does not use ROS ROS ED Constitutional Constitutional ED: Denies chills or weight loss Eyes Eyes: Denies change in vision or diplopia ENT ENT ED: Denies ear pain, rhinorrhea or sore throat Cardiovascular Cardiovascular: Denies chest pain, orthopnea, palpitations or racing heartbeat Respiratory/Chest Respiratory/Chest: Denies cough, dyspnea or orthopnea Gastrointestinal Gastrointestinal: Denies abdominal pain, diarrhea, nausea or vomiting Genitourinary Genitourinary ED: Denies dysuria, hematuria or urinary frequency Musculoskeletal Musculoskeletal: Reports other Details: See HPI ; Denies arthralgias or myalgias Integumentary Denies abscess or rash Neurologic Neurologic: Denies headache(s) or weakness Psychiatric Psychiatric: Denies anxiety, depression, suicidal ideation or suicidal thoughts Endocrine Endocrinology: Denies polydipsia, polyphagia or polyuria Allergic/Immunologic Allergic/Immunologic ED: Denies mouth swelling, tongue swelling or urticaria EXAM Physical Exam Const Vital Signs: 04/07/21 17:03 Temperature 98.5 F Temperature Source Temporal Pulse Rate 74 Respiratory Rate 15 Blood Pressure 125/70 H Blood Pressure Mean 88 Pulse Ox 100 Oxygen Delivery Method Room Air Positive well nourished and well developed General Appearance ED: well developed HEENT Reports normocephalic, head/scalp atraumatic and moist mucous membranes Eyes PERRL and EOMs intact bilaterally Neck no lymphadenopathy, supple and no JVD Resp normal respiratory effort and clear to auscultation bilaterally Cardio regular rate, regular rhythm and no murmurs GI normal to inspection, nondistended, normoactive bowel sounds and non-tender Palpation: soft Back/Spine no CVA tenderness and normal ROM Extremity Extremity Narrative: There is swelling and ecchymosis over the dorsum of the right hand particular tenderness along the fourth metacarpal. No malrotation. General Extremety ED: Negative for edema General Extremity: Negative for edema Neuro oriented x3 and CN's II-XII intact bilaterally Sensorium / Orientation: alert Motor Exam: strength 5/5 throughout Psych mental status grossly normal Mood & Affect: Negative for depressed or tearful Skin no rashes or lesions noted and no wounds MDM MDM MDM Narrative Medical decision making narrative: My interpretation of the plain films of the right hand is no acute fracture. Radiology concurs patient will be discharged home with supportive care follow-up 10 to 14 days if not improved Radiography Diagnostic Testing: Radiology Impression Hand X-Ray 04/07/21 17:20 IMPRESSION: Normal x-ray examination of the hand. Electronically Signed: Vikash Gonzalez MD at 18:33 EDT , Service support , Discharge Plan Triage Chief Complaint: Upper Extremity Injury ED Provider: Scar Nava Dx/Rx/DC Orders Clinical Impression: Contusion of right hand including fingers Instructions: ED Hand Contusion Prescriptions: No Action norgestimate-ethinyl estradiol 1 TABLET tablet 1 tab PO DAILY RF: 0 Primary Care Provider: Eliud Eid Referrals: Eliud Eid MD [Primary Care Provider] - 10-14 Days if not better Disposition Disposition: Home, Self Care
[2021-04-07 19:17] VITALS: BP 120/75; PULSE 65; RESP 14; O2SAT 98
== END 2021-04-07 19:17 | disposition home or self-care (01) ==
PROVIDERS: Emergency Provider Emergency Medicine; PCP Family Medicine
DX: S60.221A Contusion of right hand, initial encounter (principal); W10.9XXA Fall (on) (from) unspecified stairs and steps, initial encounter; Y93.9 Activity, unspecified; Y92.9 Unspecified place or not applicable
CPT/HCPCS: 73130; 99282